=== PATIENT | female | born 2000 | race Hispanic/Latino ===

== ENCOUNTER 2021-02-21 16:04 | Emergency (ER) | payer MEDICAID ==
[~2021-02-21] VITALS: Ht 170.2 cm; Wt 99.8 kg
[2021-02-21 16:05] VITALS: BP 140/86
[2021-02-21] MEDS ORDERED: PREDNISONE 20 MG TABLET PO ONE (16:30)
[2021-02-21] MEDS ORDERED: DIPHENHYDRAMINE HCL 25 MG CAPSULE PO ONE (16:30)
[2021-02-21] MEDS ORDERED: FAMOTIDINE 20MG TAB PO ONE (16:30)
[2021-02-21] MEDS ORDERED: CETI10CA5 PO (16:35)
[2021-02-21] MEDS ORDERED: PRED20TA3 PO (16:35)
[2021-02-21] MEDS ORDERED: PREDNISONE 20 MG TABLET ONE (16:47)
[2021-02-21] MEDS ORDERED: FAMOTIDINE 20MG TAB ONE (16:47)
[2021-02-21] MEDS ORDERED: DIPHENHYDRAMINE HCL 25 MG CAPSULE ONE (16:48)
== END 2021-02-21 19:08 | disposition home or self-care (01) ==
LOC: EDH 16:04
DX: T78.49XA Other allergy, initial encounter (principal); Z79.52 Long term (current) use of systemic steroids; X58.XXXA Exposure to other specified factors, initial encounter
CPT/HCPCS: 99284; Q0163

== ENCOUNTER 2021-03-28 12:22 | Emergency (ER) | payer MEDICAID ==
[~2021-03-28] VITALS: Ht 170.2 cm; Wt 99.8 kg
[~2021-03-28 12:22] MED LIST: CETI10CA5 PO; PRED20TA3 PO
[2021-03-28 12:23] VITALS: BP 133/74
[2021-03-28] MEDS ORDERED: CYCL10 PO (15:32)
[2021-03-28] MEDS ORDERED: IBUP-2070 PO (15:32)
[2021-03-28] MEDS ORDERED: KETOROLAC 30MG VIAL (30MG/ML) IM SCH (16:00)
== END 2021-03-28 16:19 | disposition home or self-care (01) ==
LOC: EDH 12:22
DX: S16.1XXA Strain of muscle, fascia and tendon at neck level, initial encounter (principal); R51.9 Headache, unspecified; Z79.52 Long term (current) use of systemic steroids; Z79.1 Long term (current) use of non-steroidal anti-inflammatories (NSAID); V49.49XA Driver injured in collision with other motor vehicles in traffic accident, initial encounter; Y93.89 Activity, other specified; Y92.89 Other specified places as the place of occurrence of the external cause; Y99.8 Other external cause status
CPT/HCPCS: 36415; 70450; 72125; 84702

== ENCOUNTER 2021-08-20 20:24 | Emergency (ER) | payer MEDICAID ==
[~2021-08-20] VITALS: Ht 170.2 cm; Wt 104.3 kg
[~2021-08-20 20:24] MED LIST changes: +CYCL10TA16 PO; +IBUP-2070 PO
[2021-08-20 21:18] LABS: BASOPHILS % (AUTO) 0.4 % (0.0-5.0); HEMATOCRIT 46.4 % (36-48); LYMPHOCYTES % (AUTO) 27.1 % (21.0-51.0); MEAN CORPUSCULAR HEMOGLOBIN 27.4 pg (27.0-33.0); MEAN CORPUSCULAR HGB CONC 32.3 g/dL (32.0-36.0); MEAN CORPUSCULAR VOLUME 84.8 fL (79-99); MONOCYTES % (AUTO) 5.6 % (3.0-13.0); NEUTROPHILS % (AUTO) 65.5 % (40.0-77.0); PLATELET COUNT (AUTO) 386 K/uL (130-400); RED BLOOD CELL COUNT(AUTO) 5.47 MIL/uL (4.00-5.50); RED CELL DISTRIBUTION WIDTH 12.8 % (11.0-15.5); WHITE BLOOD COUNT (AUTO) 11.3 K/uL (4.8-10.8)
[2021-08-20 21:42] LABS: CREATININE 0.6 mg/dL (0.5-1.5); POTASSIUM 3.3 mmol/L (3.5-5.1)
[2021-08-20 21:52] LABS: ALBUMIN 3.9 g/dL (3.5-5.0); BILIRUBIN,TOTAL 0.7 mg/dL (0.2-1.0); TOTAL PROTEIN, SERUM 8.1 g/dL (6.0-8.3)
[2021-08-20 23:50] VITALS: BP 124/74
== END 2021-08-20 23:54 | disposition home or self-care (01) ==
LOC: EDH 20:27
DX: N92.0 Excessive and frequent menstruation with regular cycle (principal); Z79.899 Other long term (current) drug therapy; Z72.0 Tobacco use
CPT/HCPCS: 36415; 76856; 80053; 84702; 85025; 86900; 86901; 87486; 87797

== ENCOUNTER 2024-05-29 10:12 | Emergency (ER) | payer SELFPAY ==
[~2024-05-29] VITALS: Ht 170.2 cm; Wt 94.8 kg
--- NOTE | 2024-05-29 10:40 | ERN ---
General Chief Complaint: Cough Stated Complaint: COUGH Time Seen by MD: 10:13 Time Seen by Midlevel: 10:13 Source: patient History of Present Illness Initial Comments Patient is a 24-year-old female with no significant past medical history being brought in by mom for evaluation of flu-like symptoms. Symptoms consist of a productive cough, congestion, and intermittent low-grade fevers for the last four days. Patient was seen in our emergency department four days ago for an allergic reaction was discharged home on Benadryl. Shortly after patient developed the symptoms. Mom and patient's older brother is sick with similar symptoms. Allergies: Coded Allergies: No Known Drug Allergies (Unverified Allergy, Unknown, 02/21/21) Home Meds Active Scripts Ibuprofen (Ibuprofen) 600 Mg Tablet, 600 MG PO TID PRN for PAIN for 5 Days, #5 15 Prov:YONNY ISAAC NP 03/28/21 Cyclobenzaprine HCl (Flexeril) 10 Mg Tab, 5 MG PO TID for neck pain for 5 Days, #20 TAB Prov:YONNY ISAAC NP 03/28/21 Cetirizine HCl (Zyrtec) 10 Mg Capsule, 10 MG PO DAILY PRN for allergic reaction for 5 Days, #5 CAP 0 Refills Prov:CROW JUSTIN MD 02/21/21 Prednisone (Prednisone) 20 Mg Tablet, 20 MG PO BID for 3 Days, #6 TAB 0 Refills Prov:CROW JUSTIN MD 02/21/21 Past Medical History Past Medical History: No Pertinent History Past Surgical History: None Female( History) LMP: May 24, 2024 ROS Dictation CONSTITUTIONAL: Negative except for HPI HEAD/FACE: Negative except for HPI EENT: Negative except for HPI RESPIRATORY: Negative except for HPI GASTROINTESTINAL/ABDOMINAL: Negative except for HPI GENITOURINARY: Negative except for HPI MUSCULOSKELETAL: Negative except for HPI INTEGUMENTARY: Negative except for HPI NEUROLOGICAL/PSYCH: Negative except for HPI HEMATOLOGIC/LYMPHATIC: Negative except for HPI All Systems Negative, Except as noted above. 13 point review of systems assessed and all negative except for above. Physical Exam Physical Exam Dictation Vital Signs reviewed General Appearance: Alert, oriented x 3, no acute distress, well developed, nourished. Head and Face: non-traumatic. Eyes: PERRL, pink conjunctivas, eyelid no trauma, anterior chamber with arcus senilis. Ears: Pinnas intact and no signs of trauma or erythema ear canals clear and no discharge TM no erythema Nose: No discharge, no bleeding. Oropharynx: Erythema to the posterior oropharynx, bilateral tonsillar exudates, pharynx clear,no erythema, tonsils no exudates, no abscesses noted, mucous membrane moist Neck: Supple, non-tender, no thyromegaly, no masses, no JVD, no bruits Breast:Deferred Chest:No tenderness, no crepitus, no paradoxical movement, no retractions Lungs:Clear, well-ventilated, symmetric, no rales, no wheezing, no rhonchi, no stridor, good breath sounds bilaterally Heart: Regular rate, regular rhythm, no murmur, no gallops Vascular: no peripheral edema, Abdomen: Soft, positive bowel sounds, nondistended, no guarding, nontender, no rebound, no masses no hepatomegaly, no splenomegaly, no Mcdermott's sign, no hernias. Rectal: Deferred Genital: Deferred Neurological: Normal speech, motor function intact, sensory function intact Musculoskeletal: Neck nontender, full range of motion, back nontender, full range of motion, Extremities: nontender, full range of motion Skin: Color pink, dry, no turgor, no rash, no lacerations, no abrasions, no contusions. Lymphatic: Deferred Results Laboratory and Microbiology Lab and Micro Result Laboratory Tests Test 05/29/24 11:22 Influenza Type A Antigen NEGATIVE FOR TYPE A Influenza Type B Antigen NEGATIVE FOR TYPE B SARS-CoV-2, RNA, NAAT NEGATIVE SARS CoV-2 Group A Streptococcus Rapid positive (NEGATIVE) *A Labs Reviewed?: Yes MDM MDM: Patient is a 24-year-old female with no significant past medical history being brought in by mom for evaluation of flu-like symptoms. Symptoms consist of a productive cough, congestion, and intermittent low-grade fevers for the last four days. Patient was seen in our emergency department four days ago for an allergic reaction was discharged home on Benadryl. Shortly after patient developed the symptoms. Mom and patient's older brother is sick with similar symptoms. On physical examination patient has erythema to the posterior oropharynx with bilateral tonsillar exudates. Uvula is midline. No signs of peritonsillar abscess. Patient has an O2 saturation of 100% on room air. She was in no acute respiratory distress. Respiratory swabs are remarkable for strep. Patient was given 1 g of Rocephin IM along with a single dose of dexamethasone 10 mg in the ER. She will be discharged home with antibiotics for outpatient management. Differential diagnosis: Viral syndrome, strep pharyngitis, upper respiratory infection There are no social concerns with this patient. Prescription drug management Prescriptions will include: Augmentin and Medrol pack Medical management and examination interpretation discussions were had by me w ith other qualified healthcare professionals as indicated for the patient's care. ED Course Orders Procedure Category Date Status Time Covid Rna Naat LAB 05/29/24 Complete 10:33 Influenza Type A & B, LAB 05/29/24 Complete Rapid 10:33 Rapid (Group A Strep) LAB 05/29/24 Complete 10:33 Monotest LAB 05/29/24 In Process 10:33 Ceftriaxone 1g Vial PHA 05/29/24 Transmitted (Rocephine 1g Inj) 12:30 Dexamethasone 4mg/Ml PHA 05/29/24 Transmitted 1ml Vial (Dexametha 12:30 Current Medications Medications (Trade) Dose Ordered Sig/Elan Route PRN Reason Start Time Stop Time Status Last Admin Dose Admin Ceftriaxone Sodium (ROCEphine 1G INJ) 1 gm ONCE ONCE IM 05/29/24 12:30 05/29/24 12:31 Dexamethasone Sodium Phosphate (dexaMETHasone 4MG/ML 1ML VIAL) 10 mg ONCE ONCE IM 05/29/24 12:30 05/29/24 12:31 Vital Signs Date Time Temp Pulse Resp B/P (MAP) Pulse Ox O2 Delivery O2 Flow Rate FiO2 05/29/24 11:00 98.8 84 16 161/89 97 Room Air* 0 21 05/29/24 10:18 98.2 82 16 158/93 96 Room Air 0 DX & DISP Disposition: Discharge Departure Impression: Primary Impression: Strep pharyngitis Condition: Stable Scripts Methylprednisolone (Medrol) 4 Mg Tab.ds.pk 1 TAB PO AD for 6 Days, #21 TAB 0 Refills 6 on day 1 then reduce by one tablet daily until gone Prov: ROXIE RODRIGUEZ 05/29/24 Amoxicillin/Potassium Clav (Amox Tr-K Clv 875-125 mg Tab) 875 Mg-125 Mg Tablet 1 EACH PO BID for 7 Days, #14 TAB 0 Refills Prov: ROXIE RODRIGUEZ 05/29/24 Additional Instructions: You have tested positive for strep. You were given antibiotics and steroids in the emergency department. I have given you a prescription for Augmentin for outpatient management. Follow up with your primary care doctor in 2-3 days for repeat evaluation. Return to the ER for any new or worsening symptoms. Referrals: NONE (PCP) Time of Disposition: 12:31 I have reviewed the case, and I agree with, Diagnosis and Plan I performed the substantive portion of the visit. I have reviewed and personal ly made and approve the management plan that is documented in the note by myself or the DANILO. I acknowledge for responsibility for the patient's management plan. ROXIE RODRIGUEZ May 29, 2024 10:40
[2024-05-29 11:57] LABS: SARS-CoV-2, RNA, NAAT NEGATIVE SARS CoV-2 (NEGATIVE)
[2024-05-29 12:07] LABS: RAPID GROUP A STREP positive (NEGATIVE)
[2024-05-29 12:08] LABS: INFLUENZA TYPE A NEGATIVE FOR TYPE A (NEGATIVE); INFLUENZA TYPE B NEGATIVE FOR TYPE B (NEGATIVE)
[2024-05-29] MEDS ORDERED: METH4TAB3 PO (12:33)
[2024-05-29] MEDS ORDERED: AMOX1TAB16 PO (12:33)
[2024-05-29] MEDS: cefTRIAXone 1G VIAL IM ONE (12:36)
[2024-05-29] MEDS: dexaMETHasone SOD PHOSPHATE 4 MG/ML 1ML VIAL IM ONE (12:36)
[2024-05-29 13:03] VITALS: BP 142/86; PULSE 82; RESP 16; TEMP 98.3; O2SAT 97
== END 2024-05-29 13:13 | disposition home or self-care (01) ==
LOC: EDH 10:12
DX: J02.0 Streptococcal pharyngitis (principal); Z79.52 Long term (current) use of systemic steroids; Z20.822 Contact with and (suspected) exposure to COVID-19
CPT/HCPCS: 99284; 87635; 87880; 86308; 87804 ×2; 36415; 96372 ×2; J1100; J0696

== ENCOUNTER 2024-10-26 00:06 | Emergency (ER) | payer MEDICAID, SELFPAY ==
[~2024-10-26] VITALS: Ht 170.2 cm; Wt 92.5 kg
[~2024-10-26 00:06] MED LIST changes: +AMOX1TAB16 PO; +METH4TAB3 PO
[2024-10-26 00:37] LABS: APPEARANCE,URINE CLEAR (CLEAR); BILIRUBIN,URINE NEGATIVE (NEGATIVE); COLOR,URINE LIGHT-YELLOW (YELLOW); GLUCOSE, URINE (UA) NEGATIVE (NEGATIVE); KETONES,URINE NEGATIVE (NEGATIVE); LEUKOCYTE ESTERASE ,URINE NEGATIVE Leu/uL (NEGATIVE); NITRATE,URINE NEGATIVE (NEGATIVE); OCCULT BLOOD,URINE NEGATIVE (NEGATIVE); PROTEIN,URINE NEGATIVE (NEGATIVE); UROBILINOGEN,URINE 0.2 mg/dL (0.2-1.0)
[2024-10-26 00:50] LABS: ADD UA MICROSCOPIC NO
[2024-10-26 01:02] LABS: BASOPHILS # (AUTO) 0.06 K/uL (0.00-0.20); BASOPHILS % (AUTO) 0.5 % (0.0-5.0); EOSINOPHILS # (AUTO) 0.11 K/uL (0.00-0.70); EOSINOPHILS % (AUTO) 0.9 % (0.0-8.0); HEMATOCRIT 43.6 % (36-48); IMMATURE GRANULOCYTE ABSOLUTE 0.03 K/uL (0-1); LYMPHOCYTES # (AUTO) 4.1 K/uL (1.0-4.8); LYMPHOCYTES % (AUTO) 33.4 % (21.0-51.0); MEAN CORPUSCULAR HEMOGLOBIN 28.6 pg (27.0-33.0); MEAN CORPUSCULAR HGB CONC 33.7 g/dL (32.0-36.0); MEAN CORPUSCULAR VOLUME 84.8 fL (79-99); MONOCYTES # (AUTO) 0.7 K/uL (0.1-1.0); MONOCYTES % (AUTO) 5.5 % (3.0-13.0); NEUTROPHILS # (AUTO) 7.2 K/uL (1.8-7.7); NEUTROPHILS % (AUTO) 59.5 % (40.0-77.0); PLATELET COUNT (AUTO) 387 K/uL (130-400); RED BLOOD CELL COUNT(AUTO) 5.14 MIL/uL (4.00-5.50); RED CELL DISTRIBUTION WIDTH 12.7 % (11.0-15.5); WHITE BLOOD COUNT (AUTO) 12.2 K/uL (4.8-10.8)
[2024-10-26 01:08] LABS: CREATININE 0.6 mg/dL (0.5-1.0); POTASSIUM 3.6 mmol/L (3.5-5.1)
[2024-10-26 01:26] LABS: ALBUMIN 3.8 g/dL (3.5-5.0); BILIRUBIN,DIRECT 0.1 mg/dL (0.0-0.3); BILIRUBIN,TOTAL 0.5 mg/dL (0.2-1.0); TOTAL PROTEIN, SERUM 7.5 g/dL (6.0-8.3)
--- NOTE | 2024-10-26 01:48 | ERN ---
ED Note History of Present Illness Stated Complaint: C/O ABD PAIN WITH N X V X DIARRHEA, FEVER Chief Complaint: Abdominal Pain Time Seen by MD: 00:08 Time Seen by Midlevel: 00:11 Dictation: 24-year-old female with no past medical history coming in complaining of a vomiting and diarrhea since Wednesday. Patient states today she has three episodes of vomiting ,nonbloody in lost counter for diarrhea movements, also nonbloody. Patient denies having any fever, chest pain she was discomfort, lightheadedness. Denies any other complaints. Patient states her LMP was last week Allergies: Coded Allergies: No Known Drug Allergies (Unverified Allergy, Unknown, 02/21/21) Home Meds Active Scripts Methylprednisolone (Medrol) 4 Mg Tab.ds.pk, 1 TAB PO AD for 6 Days, #21 TAB 0 Refills 6 on day 1 then reduce by one tablet daily until gone Prov:ROXIE RODRIGUEZ 05/29/24 Amoxicillin/Potassium Clav (Amox Tr-K Clv 875-125 mg Tab) 875 Mg-125 Mg Tablet, 1 EACH PO BID for 7 Days, #14 TAB 0 Refills Prov:ROXIE RODRIGUEZ 05/29/24 Ibuprofen (Ibuprofen) 600 Mg Tablet, 600 MG PO TID PRN for PAIN for 5 Days, #5 15 Prov:YONNY ISAAC NP 03/28/21 Cyclobenzaprine HCl (Flexeril) 10 Mg Tab, 5 MG PO TID for neck pain for 5 Days, #20 TAB Prov:YONNY ISAAC NP 03/28/21 Cetirizine HCl (Zyrtec) 10 Mg Capsule, 10 MG PO DAILY PRN for allergic reaction for 5 Days, #5 CAP 0 Refills Prov:CROW JUSTIN MD 02/21/21 Prednisone (Prednisone) 20 Mg Tablet, 20 MG PO BID for 3 Days, #6 TAB 0 Refills Prov:CROW JUSTIN MD 02/21/21 Past Medical History Past Medical History: No Pertinent History Surgical History: Other LMP: Oct 19, 2024 Review of System Dictation Constitutional: Negative for fever,chills, and weight loss Eyes: Negative for injury, pain,redness, and discharge ENT: Negative for injury,pain or swelling Cardiovascular: Negative for chest pain, palpitations, and edema Respiratory: Negative for shortness of breath, cough, and wheezing, Abdomen/GI:complaining of nausea and vomiting and diarrhea, Back: Negative for injury and pain : Negative for injury, bleeding and discharge MS/Extremity: Negative for injury and deformity Skin: Negative for rash, and discoloration Neuro: Negative for headache, weakness, numbness, tingling, and seizure Psych: Negative for suicide ideation, homicidal ideation, and hallucinations Review of Systems: was completed Initial Vital Sign VS Vital Signs Date Time Temp Pulse Resp B/P (MAP) Pulse Ox O2 Delivery O2 Flow Rate FiO2 10/26/24 00:08 98.8 70 20 129/82 98 Room Air Physical Exam Dictation General: awake, alert, NAD Head/Face: Normocephalic, atraumatic Eyes: PERRL, EOMI, vision at baseline ENT: oral cavity clear, TMs clear, no signs of infection Neck: Trachea midline, supple, no nuchal rigidity Cardiovascular: RRR, normal S1/S2, No MRGs, no JVD Respiratory: CTAB, no respiratory distress, No rales or wheezes Abdomen: Soft, non-tender, non-distended, normal bowel sounds, no guarding or rebound. Skin: Warm, dry, normal turgor, no rash MS/Extremity: Pulses equal, no cyanosis, neurovascular intact, FROM Neuro: COAx4, GCS 15, strength 5/5, CN 2-12 intact, normal cerebellar exam, normal gait, Psych: Normal behavior, mood, and affect normal Results (Laboratory/Radiology) Laboratory/Radiology Laboratory Tests Test 10/26/24 00:15 10/26/24 00:53 Urine Color LIGHT-YELLOW (YELLOW) Urine Appearance CLEAR (CLEAR) Urine pH 6.0 (5.0-8.0) Urine Specific Spencer 1.021 (1.001-1.031) Urine Protein NEGATIVE mg/dL (NEGATIVE) Urine Glucose (UA) NEGATIVE mg/dL (NEGATIVE) Urine Ketones NEGATIVE mg/dL (NEGATIVE) Urine Occult Blood NEGATIVE (NEGATIVE) Urine Nitrate NEGATIVE (NEGATIVE) Urine Bilirubin NEGATIVE mg/dL (NEGATIVE) Urine Urobilinogen 0.2 mg/dL (0.2-1.0) Urine Leukocyte Esterase NEGATIVE Rafael/uL White Blood Count 12.2 K/uL (4.8-10.8) H Red Blood Count 5.14 MIL/uL (4.00-5.50) Hemoglobin 14.7 g/dL (12.0-16.0) Hematocrit 43.6 % (36-48) Mean Corpuscular Volume 84.8 fL (79-99) Mean Corpuscular Hemoglobin 28.6 pg (27.0-33.0) Mean Corpuscular Hemoglobin Concent 33.7 g/dL (32.0-36.0) Red Cell Distribution Width 12.7 % (11.0-15.5) Platelet Count 387 K/uL (130-400) Mean Platelet Volume 10.0 fL (7.5-10.5) Immature Granulocyte % (Auto) 0.2 % (0-1) Neutrophils (%) (Auto) 59.5 % (40.0-77.0) Lymphocytes (%) (Auto) 33.4 % (21.0-51.0) Monocytes (%) (Auto) 5.5 % (3.0-13.0) Eosinophils (%) (Auto) 0.9 % (0.0-8.0) Basophils (%) (Auto) 0.5 % (0.0-5.0) Neutrophils # (Auto) 7.2 K/uL (1.8-7.7) Lymphocytes # (Auto) 4.1 K/uL (1.0-4.8) Monocytes # (Auto) 0.7 K/uL (0.1-1.0) Eosinophils # (Auto) 0.11 K/uL (0.00-0.70) Basophils # (Auto) 0.06 K/uL (0.00-0.20) Absolute Immature Granulocyte (auto 0.03 K/uL (0-1) Nucleated Red Blood Cells 0.0 % (0.0-0.19) Sodium Level 138 mmol/L (136-145) Potassium Level 3.6 mmol/L (3.5-5.1) Chloride Level 103 mmol/L (101-111) Carbon Dioxide Level 30 mmol/L (21-32) Blood Urea Nitrogen 13 mg/dL (7-18) Creatinine 0.6 mg/dL (0.5-1.0) Glomerular Filtration Rate Calc 128 mL/min (>90) Random Glucose 91 mg/dL (70-105) Total Calcium 8.9 mg/dL (8.5-10.1) Total Bilirubin 0.5 mg/dL (0.2-1.0) Direct Bilirubin 0.1 mg/dL (0.0-0.3) Aspartate Amino Transf (AST/SGOT) 19 U/L (10-37) Alanine Aminotransferase (ALT/SGPT) 35 U/L (12-78) Alkaline Phosphatase 79 U/L (50-136) Total Protein 7.5 g/dL (6.0-8.3) Albumin 3.8 g/dL (3.5-5.0) Lipase 33 U/L (16-77) Human Chorionic Gonadotropin, Quant 0 mIU/mL (0-5) Labs Reviewed?: Yes ED Course ED Course Orders Procedure Category Date Status Time Cbc With Differential LAB 10/26/24 Complete 00:08 Basic Metabolic Panel LAB 10/26/24 Complete 00:08 Lipase LAB 10/26/24 Complete 00:08 Hepatic Function Panel LAB 10/26/24 Complete 00:08 Hcg,Quantitative LAB 10/26/24 Complete 00:08 Urinalysis Profile LAB 10/26/24 Complete 00:08 0.9%Nacl 1000ml (Ns PHA 10/26/24 Complete 1000ml) 00:12 Stool Panel Gi By Pcr LAB 10/26/24 Logged 00:12 Current Medications Medications (Trade) Dose Ordered Sig/Elan Route PRN Reason Start Time Stop Time Status Last Admin Dose Admin Sodium Chloride 1,000 ml @ 1,000 mls/hr Q1H STAT IV 10/26/24 00:12 10/26/24 01:11 DC Vital Signs Date Time Temp Pulse Resp B/P (MAP) Pulse Ox O2 Delivery O2 Flow Rate FiO2 10/26/24 00:08 98.8 70 20 129/82 98 Room Air Medical Decision Making MDM MDM: 24-year-old female with no past medical history coming in complaining of a vomiting and diarrhea since Wednesday. Patient states today she has three episodes of vomiting ,nonbloody in lost counter for diarrhea movements, also nonbloody. Patient denies having any fever, chest pain she was discomfort, lightheadedness. Denies any other complaints. Patient states her LMP was last week. Blood work unremarkable. Ordered a GI PCR however patient was unable to provide sample she has not had a bowel movement since she arrived. Patient also drank a sprite while she was waiting for the lab results. She was able to tolerate it with a out any vomiting or diarrhea. Discussed with the patient to follow up with PCP in 1-2 days or turned has a hospitalist needed. Differential diagnosis: Gastroenteritis, viral syndrome, Rationale: Tests considered and ordered secondary to shared decision making include: Previous outside records reviewed: Old ER visits. Risk of complication and/or morbidity or mortality of patient management: None Medications-Per medication reconciliation Need for hospitalization: Patient does not meet criteria for hospitalization. Need for emergency major/minor surgery: No There are no social concerns with this patient. Prescription drug management Prescriptions will include symptomatic care Patient's prior external medical records from other ER visits were reviewed by me as indicated. Prior testing and results from previous visits were reviewed. Prior tests were taken into account with medical decision making and resource utilization, independent historian/historians were used to obtain complete medical history. I independently interpreted the test that were performed, results were reviewed by me and considered findings on radiology if ordered. Medical management and examination interpretation discussions were had by me with other qualified healthcare professionals as indicated for the patient's care. DX & DISP Disposition: Discharge Departure Impression: Primary Impression: Gastroenteritis Condition: Stable Additional Instructions: Please stay hydrated. Follow up with PCP in 1-2 days. Return to the hospital for worsening symptoms. Referrals: SELF,REFERRAL (PCP) Time of Disposition: 01:46 I have reviewed the case, and I agree with, Diagnosis and Plan I PERFORMED A SUBSTANTIVE PORTION OF THE VISIT. I HAVE REVIEWED AND PERSONALLY MADE AND APPROVE THE MANAGEMENT PLAN THAT IS DOCUMENTED IN THE NOTE BY MYSELF OR THE AP P. I ACKNOWLEDGE FULL RESPONSIBILITY FOR THE PATIENT'S MANAGEMENT PLAN. LICO VANN NP Oct 26, 2024 01:48
[2024-10-26 01:55] VITALS: BP 118/78; PULSE 66; RESP 18; TEMP 98.4; O2SAT 97
[2024-10-26] MEDS: 0.9%NACL 1000ML 1,000 ML IV STA (02:03)
== END 2024-10-26 02:07 | disposition home or self-care (01) ==
LOC: EDH 00:06
DX: K52.9 Noninfective gastroenteritis and colitis, unspecified (principal); R10.2 Pelvic and perineal pain; Z79.52 Long term (current) use of systemic steroids
CPT/HCPCS: 36415; 80048; 80076; 81003; 83690; 84702; 85025; 99283

== ENCOUNTER 2024-11-27 15:00 | Emergency (ER) | payer MEDICAID ==
[~2024-11-27] VITALS: Ht 170.2 cm; Wt 94.0 kg
[2024-11-27 16:04] LABS: INFLUENZA TYPE A Negative For Type A (NEGATIVE); INFLUENZA TYPE B Negative For Type B (NEGATIVE)
[2024-11-27] MEDS ORDERED: CLIN-141 PO (16:23)
--- NOTE | 2024-11-27 16:23 | ERN ---
ED Note History of Present Illness Stated Complaint: COUGH, CONGESTION, COVID + Chief Complaint: Cough Time Seen by MD: 15:01 Dictation: 24-year-old female presents to the ED for evaluation of cough onset four days ago. Mother reports fever, vomiting, and finger infection, but denies any abdominal pain, diarrhea or any other associated symptoms at this time. Patient states she tested positive for COVID at home and states her daughter is also COVID positive. Allergies: Coded Allergies: No Known Drug Allergies (Unverified Allergy, Unknown, 02/21/21) Home Meds Active Scripts Clindamycin HCl (Clindamycin HCl) 300 Mg Capsule, 1 CAP PO TID for 10 Days, #30 CAP 0 Refills Prov:SINDHU NATION MD 11/27/24 Methylprednisolone (Medrol) 4 Mg Tab.ds.pk, 1 TAB PO AD for 6 Days, #21 TAB 0 Refills 6 on day 1 then reduce by one tablet daily until gone Prov:ROXIE RODRIGUEZ 05/29/24 Amoxicillin/Potassium Clav (Amox Tr-K Clv 875-125 mg Tab) 875 Mg-125 Mg Tablet, 1 EACH PO BID for 7 Days, #14 TAB 0 Refills Prov:ROXIE RODRIGUEZ 05/29/24 Ibuprofen (Ibuprofen) 600 Mg Tablet, 600 MG PO TID PRN for PAIN for 5 Days, #5 15 Prov:YONNY ISAAC NP 03/28/21 Cyclobenzaprine HCl (Flexeril) 10 Mg Tab, 5 MG PO TID for neck pain for 5 Days, #20 TAB Prov:YONNY ISAAC NP 03/28/21 Cetirizine HCl (Zyrtec) 10 Mg Capsule, 10 MG PO DAILY PRN for allergic reaction for 5 Days, #5 CAP 0 Refills Prov:CROW JUSTIN MD 02/21/21 Prednisone (Prednisone) 20 Mg Tablet, 20 MG PO BID for 3 Days, #6 TAB 0 Refills Prov:CROW JUSTIN MD 02/21/21 Past Medical History Past Medical History: No Pertinent History Surgical History: Other LMP: November 06, 2024 Review of System Dictation Constitutional: Positive for fever negative for chills, and weight loss Eyes: Negative for injury, pain,redness, and discharge ENT: Negative for injury,pain or swelling Cardiovascular: Negative for chest pain, palpitations, and edema Respiratory: Positive for cough, Negative for shortness of breath, and wheezing, Abdomen/GI: Positive for vomiting,Negative for abdominal pain, nausea, diarrhea, and constipation Back: Negative for injury and pain : Negative for injury, bleeding and discharge MS/Extremity: Positive for finger pain Negative for injury and deformity Skin: Negative for rash, and discoloration Neuro: Negative for headache, weakness, numbness, tingling, and seizure Psych: Negative for suicide ideation, homicidal ideation, and hallucinations Initial Vital Sign VS Vital Signs Date Time Temp Pulse Resp B/P (MAP) Pulse Ox O2 Delivery O2 Flow Rate FiO2 11/27/24 15:01 98.2 94 20 186/97 98 Room Air 0 Physical Exam Dictation General: awake, alert, NAD Head/Face: Normocephalic, atraumatic Eyes: PERRL, EOMI, vision at baseline ENT: oral cavity clear, TMs clear, nasal congestion Neck: Trachea midline, supple, no nuchal rigidity Cardiovascular: RRR, normal S1/S2, No MRGs, no JVD Respiratory: CTAB, no respiratory distress, No rales or wheezes Abdomen: Soft, non-tender, non-distended, normal bowel sounds, no guarding or rebound. Skin: Warm, dry, normal turgor, no rash MS/Extremity: Pulses equal, no cyanosis, neurovascular intact, FROM, left 3rd distal digit erythema consistent with paronychia Neuro: COAx4, GCS 15, strength 5/5, CN 2-12 intact, normal cerebellar exam, normal gait, Psych: Normal behavior, mood, and affect normal Results (Laboratory/Radiology) Laboratory/Radiology Laboratory Tests Test 11/27/24 15:23 Influenza Type A Antigen Negative For Type A Influenza Type B Antigen Negative For Type B SARS-CoV-2 Antigen (Rapid) POSITIVE FOR SARS AG Group A Streptococcus Rapid positive (NEGATIVE) *A Labs Reviewed?: Yes ED Course ED Course Orders Procedure Category Date Status Time Covid19 (Sars Antigen LAB 11/27/24 Complete Rapid) 15:07 Influenza Type A & B, LAB 11/27/24 Complete Rapid 15:07 Rapid (Group A Strep) LAB 11/27/24 Complete 15:07 Ceftriaxone 1g Vial PHA 11/27/24 Complete (Rocephine 1g Inj) 16:30 Current Medications Medications (Trade) Dose Ordered Sig/Elan Route PRN Reason Start Time Stop Time Status Last Admin Dose Admin Ceftriaxone Sodium (ROCEphine 1G INJ) 1 gm ONCE ONCE IM 11/27/24 16:30 11/27/24 16:35 DC Vital Signs Date Time Temp Pulse Resp B/P (MAP) Pulse Ox O2 Delivery O2 Flow Rate FiO2 11/27/24 15:01 98.2 94 20 186/97 98 Room Air 0 Medical Decision Making MDM MDM: Differential diagnosis: COVID, viral syndrome, URI, paronychia Risk of complication and/or morbidity or mortality of patient management: None Medications-Per medication reconciliation Need for hospitalization: Patient does not meet criteria for hospitalization. Need for emergency major/minor surgery: No There are no social concerns with this patient. Prescription drug management Prescriptions will include symptomatic care DX & DISP Disposition: Discharge Departure Impression: Primary Impression: COVID-19 Additional Impressions: Acute URI, Strep pharyngitis Condition: Stable Scripts Clindamycin HCl (Clindamycin HCl) 300 Mg Capsule 1 CAP PO TID for 10 Days, #30 CAP 0 Refills Prov: SINDHU NATION MD 11/27/24 Referrals: SELF,REFERRAL (PCP) SINDHU NATION MD November 27, 2024 16:23
[2024-11-27 16:24] LABS: COVID19 (SARS ANTIGEN RAPID) POSITIVE FOR SARS AG (NEGATIVE)
[2024-11-27 16:25] LABS: RAPID GROUP A STREP positive (NEGATIVE)
[2024-11-27] MEDS: LIDOCAINE HCL 1% 20 ML VIAL ONE (17:00)
[2024-11-27] MEDS: cefTRIAXone 1G VIAL IM ONE (17:00)
[2024-11-27 17:18] VITALS: BP 156/88; PULSE 88; RESP 18; TEMP 98.3; O2SAT 98
== END 2024-11-27 17:22 | disposition home or self-care (01) ==
LOC: EDH 15:00
DX: U07.1 COVID-19 (principal); J02.0 Streptococcal pharyngitis; Z79.52 Long term (current) use of systemic steroids
CPT/HCPCS: 99283; 87426; 87880; 87804 ×2; 96372; J0696

== ENCOUNTER 2025-02-24 10:32 | Emergency (ER) | payer MEDICAID ==
[~2025-02-24] VITALS: Ht 170.2 cm; Wt 95.3 kg
[~2025-02-24 10:32] MED LIST changes: +CLIN-141 PO; +IBUP-1492 PO; -IBUP-2070 PO
[2025-02-24 10:58] VITALS: BP 138/82; PULSE 86; RESP 22; TEMP 98.3; O2SAT 98
[2025-02-24 11:11] LABS: COVID19 (SARS ANTIGEN RAPID) PRESUMPTIVE NEGATIVE (NEGATIVE)
[2025-02-24 11:12] LABS: INFLUENZA TYPE A Negative For Type A (NEGATIVE); INFLUENZA TYPE B Negative For Type B (NEGATIVE)
--- NOTE | 2025-02-24 11:17 | ERN ---
ED Note History of Present Illness Stated Complaint: SORE THROAT Chief Complaint: Sore Throat Time Seen by MD: 11:08 Time Seen by Midlevel: 11:08 Dictation: The patient is a 24-year-old female with no significant past medical history who presents to the emergency department with complaints of sore throat, right ear pain, nasal congestion onset one week ago. Allergies: Coded Allergies: No Known Drug Allergies (Unverified Allergy, Unknown, 02/21/21) Home Meds Active Scripts Clindamycin HCl (Clindamycin HCl) 300 Mg Capsule, 1 CAP PO TID for 10 Days, #30 CAP 0 Refills Prov:SINDHU NATION MD 11/27/24 Methylprednisolone (Medrol) 4 Mg Tab.ds.pk, 1 TAB PO AD for 6 Days, #21 TAB 0 R efills 6 on day 1 then reduce by one tablet daily until gone Prov:ROXIE RODRIGUEZ 05/29/24 Amoxicillin/Potassium Clav (Amox Tr-K Clv 875-125 mg Tab) 875 Mg-125 Mg Tablet, 1 EACH PO BID for 7 Days, #14 TAB 0 Refills Prov:ROXIE RODRIGUEZ 05/29/24 Ibuprofen (Ibuprofen) 600 Mg Tablet, 600 MG PO TID PRN for PAIN for 5 Days, #5 15 Prov:YONNY ISAAC NP 03/28/21 Cyclobenzaprine HCl (Flexeril) 10 Mg Tab, 5 MG PO TID for neck pain for 5 Days, #20 TAB Prov:YONNY ISAAC NP 03/28/21 Cetirizine HCl (Zyrtec) 10 Mg Capsule, 10 MG PO DAILY PRN for allergic reaction for 5 Days, #5 CAP 0 Refills Prov:CROW JUSTIN MD 02/21/21 Prednisone (Prednisone) 20 Mg Tablet, 20 MG PO BID for 3 Days, #6 TAB 0 Refills Prov:CROW JUSTIN MD 02/21/21 Past Medical History Past Medical History: No Pertinent History Surgical History: None RN Note Reviewed/Agreed w/PFSH: Yes Review of System Dictation Constitutional: Negative for fever,chills, and weight loss Eyes: Negative for injury, pain,redness, and discharge ENT: Negative for injury,pain or swelling positive for sore throat, right ear pain, nasal congestion Cardiovascular: Negative for chest pain, palpitations, and edema Respiratory: Negative for shortness of breath, cough, and wheezing, Abdomen/GI: Negative for abdominal pain, nausea, vomiting, diarrhea, and constipation Back: Negative for injury and pain : Negative for injury, bleeding and discharge MS/Extremity: Negative for injury and deformity Skin: Negative for rash, and discoloration Neuro: Negative for headache, weakness, numbness, tingling, and seizure Psych: Negative for suicide ideation, homicidal ideation, and hallucinations Initial Vital Sign VS Vital Signs Date Time Temp Pulse Resp B/P (MAP) Pulse Ox O2 Delivery O2 Flow Rate FiO2 02/24/25 10:33 98.8 91 18 110/56 97 Room Air 02/24/25 10:58 0 21 Physical Exam Dictation Vital Signs reviewed General Appearance: Alert, oriented x 3, no acute distress, well developed, nourished. Head and Face: non-traumatic. Eyes: PERRL, pink conjunctivas, eyelid no trauma, anterior chamber with arcus senilis. Ears: Pinnas intact and no signs of trauma or right erythema ear canal, clear and no discharge TM no erythema Nose: No discharge, no bleeding. Oropharynx: Mouth normal, tongue pink. pharynx clear,no erythema, tonsils no exudates, no abscesses noted, mucous membrane moist Neck: Supple, non-tender, no thyromegaly, no masses, no JVD, no bruits Breast:Deferred Chest:No tenderness, no crepitus, no paradoxical movement, no retractions Lungs:Clear, well-ventilated, symmetric, no rales, no wheezing, no rhonchi, no stridor, good breath sounds bilaterally Heart: Regular rate, regular rhythm, no murmur, no gallops Vascular: no peripheral edema, Abdomen: Soft, positive bowel sounds, nondistended, no guarding, nontender, no rebound, no masses no hepatomegaly, no splenomegaly, no Mcdermott's sign, no hernias. Rectal: Deferred Genital: Deferred Neurological: Normal speech, motor function intact, sensory function intact Musculoskeletal: Neck nontender, full range of motion, back nontender, full range of motion, Extremities: nontender, full range of motion Skin: Color pink, dry, no turgor, no rash, no lacerations, no abrasions, no contusions. Lymphatic: Deferred Results (Laboratory/Radiology) Laboratory/Radiology Laboratory Tests Test 02/24/25 10:42 Influenza Type A Antigen Negative For Type A Influenza Type B Antigen Negative For Type B SARS-CoV-2 Antigen (Rapid) PRESUMPTIVE NEGATIVE Group A Streptococcus Rapid negative (NEGATIVE) Labs Reviewed?: Yes ED Course ED Course Orders Procedure Category Date Status Time Covid19 (Sars Antigen LAB 02/24/25 Complete Rapid) 10:43 Influenza Type A & B, LAB 02/24/25 Complete Rapid 10:43 Rapid (Group A Strep) LAB 02/24/25 Complete 10:43 Acetaminophen 500mg PHA 02/24/25 Complete Tab (Tylenol 500mg T 11:30 Current Medications Medications (Trade) Dose Ordered Sig/Elan Route PRN Reason Start Time Stop Time Status Last Admin Dose Admin Acetaminophen (TYLenol 500MG TAB) 1,000 mg ONCE ONCE PO 02/24/25 11:30 02/24/25 11:31 DC Vital Signs Date Time Temp Pulse Resp B/P (MAP) Pulse Ox O2 Delivery O2 Flow Rate FiO2 02/24/25 10:58 98.2 86 22 138/82 98 Room Air* 0 21 02/24/25 10:33 98.8 91 18 110/56 97 Room Air Medical Decision Making MDM The patient is a 24-year-old female with no significant past medical history who presents to the emergency department with complaints of sore throat, right ear pain, nasal congestion onset one week ago. Serology was negative. Patient's symptoms are consistent with a an upper respiratory infection. On physical exam patient is in no acute distress, stable vital signs, clear lung sounds. Patient will be discharged to follow up with the PCP. Differential diagnosis: Otitis media, URI, strep throat Need for hospitalization: Patient does not meet criteria for hospitalization. There are no social concerns with this patient. DX & DISP Disposition: Discharge Departure Impression: Primary Impression: URI (upper respiratory infection) Condition: Stable Additional Instructions: Your symptoms are consistent with a an upper respiratory infection.Please follow up with your PCP in 1-2 days. If anything worsens please return to ER. FOLLOW-UP WITH PRIMARY CARE PROVIDER IN 1 TO 2 DAYS. TAKE MEDICATIONS DIRECTED HERE IN THE EMERGENCY ROOM. OKAY TO CONTINUE HOME MEDICATIONS UNLESS OTHERWISE DISCUSSED DURING YOUR VISIT IN THE EMERGENCY ROOM TODAY. RETURN TO YOUR NEAREST EMERGENCY ROOM IF SYMPTOMS WORSEN OR IF THERE IS NO IMPROVEMENT. CALL 911 IF YOU NEED IMMEDIATE ASSISTANCE. TAKE TYLENOL [id number] NEEDED AND IF NO CONTRAINDICATIONS ARE PRESENT. INCREASE ORAL HYDRATION. A WOUND CULTURE OR URINE CULTURE WAS ORDERED HERE IN THE EMERGENCY ROOM DEPARTMENT PLEASE FOLLOW-UP WITH PRIMARY CARE PROVIDER AND ADVISE THEM TO GET REPEAT PORTS FROM OUR FACILITY. IF YOU HAD ANY MAME WRAP/SPLINTS THAT WERE APPLIED HERE, PLEASE DO NOT REMOVE THEM UNTIL YOU SEE YOUR PRIMARY CARE OR SPECIALTY. Referrals: CARLEY MONIQUE (PCP) Time of Disposition: 11:36 I have reviewed the case, and I agree with, Diagnosis and Plan IMLVIA MACIASP Feb 24, 2025 11:17 VAMSI SUTHERLAND DO Feb 24, 2025 12:47
[2025-02-24 11:21] LABS: RAPID GROUP A STREP negative (NEGATIVE)
== END 2025-02-24 11:52 | disposition home or self-care (01) ==
LOC: EDH 10:32
DX: J06.9 Acute upper respiratory infection, unspecified (principal); Z20.822 Contact with and (suspected) exposure to COVID-19; Z79.52 Long term (current) use of systemic steroids
CPT/HCPCS: 87426; 87804; 87880; 99283

== ENCOUNTER 2025-06-10 20:02 | Emergency (ER) | payer MEDICAID ==
[~2025-06-10] VITALS: Ht 170.2 cm; Wt 91.2 kg
--- NOTE | 2025-06-10 20:38 | ERN ---
General Chief Complaint: Vaginal Problems/Bleeding Stated Complaint: VAGINAL PAIN/DISCHARGE Time Seen by MD: 20:05 History of Present Illness Initial Comments 25-year-old female no history here for evaluation of one day history of dysuria and discharge with the urethra. 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 No similar symptoms in the past. She is concerned she has a UTI though she had came in the emergency room for evaluation. No fever no cough no shortness a breath no vomiting or diarrhea. Allergies: Coded Allergies: No Known Drug Allergies (Unverified Allergy, Unknown, 02/21/21) Home Meds Active Scripts Clindamycin HCl (Clindamycin HCl) 300 Mg Capsule, 1 CAP PO TID for 10 Days, #30 CAP 0 Refills Prov:SINDHU NATION MD 11/27/24 Methylprednisolone (Medrol) 4 Mg Tab.ds.pk, 1 TAB PO AD for 6 Days, #21 TAB 0 Refills 6 on day 1 then reduce by one tablet daily until gone Prov:ROXIE RODRIGUEZ 05/29/24 Amoxicillin/Potassium Clav (Amox Tr-K Clv 875-125 mg Tab) 875 Mg-125 Mg Tablet, 1 EACH PO BID for 7 Days, #14 TAB 0 Refills Prov:ROXIE RODRIGUEZ 05/29/24 Ibuprofen (Ibuprofen) 600 Mg Tablet, 600 MG PO TID PRN for PAIN for 5 Days, #5 15 Prov:YONNY ISAAC NP 03/28/21 Cyclobenzaprine HCl (Flexeril) 10 Mg Tab, 5 MG PO TID for neck pain for 5 Days, #20 TAB Prov:YONNY ISAAC NP 03/28/21 Cetirizine HCl (Zyrtec) 10 Mg Capsule, 10 MG PO DAILY PRN for allergic reaction for 5 Days, #5 CAP 0 Refills Prov:CROW JUSTIN MD 02/21/21 Prednisone (Prednisone) 20 Mg Tablet, 20 MG PO BID for 3 Days, #6 TAB 0 Refills Prov:CROW JUSTIN MD 02/21/21 Past Medical History Past Medical History: No Pertinent History Past Surgical History: None Female( History) LMP: May 23, 2025 Genitourinary: (+) frequency, (+) hematuria Musculoskeletal: (+) Flank Pain Physical Exam Physical Exam Dictation GENERAL APPEARANCE NAD, activity normal for age, well developed/ well nourished, no cyanosis, pallor, or diaphoresis. EYES lids/conjunctiva normal. EARS/NOSE/THROAT Mucous membranes moist, nares normal, lips/teeth normal uvula midline without oral pharyngeal erythema, exudate or swelling TMs normal bilaterally. No lymphangitis/lymphedema. HEAD/NECK normocephalic atraumatic, no facial trauma, neck is supple. RESPIRATORY respiratory effort normal, speaks in full sentences, no tripod posit ion, no accessory muscle use. Lungs clear to auscultation without rhonchi, wheezes, rales CARDIAC Regular rate and rhythm, no edema. ABDOMINAL Soft, ND/NT. No evidence of fluid wave. No pulsatile masses on exam, rebound tenderness, Mcdermott sign or pain over Mcburney's point. MUSCLES/EXTREMITIES No abnormal range of motion, no swelling. SKIN Warm, pink and dry. No rashes, dermatoses, petechiae or lesions. NEUROLOGICAL Speech is clear and appropriate. Normal level of consciousness. Gait and coordination are normal. 5/5 strength in all extremities. PSYCH Normal mood and affect. Judgement/competence is appropriate Results Laboratory and Microbiology Lab and Micro Result Laboratory Tests Test 06/10/25 20:07 06/10/25 20:22 Urine Color DARK-YELLOW (YELLOW) Urine Appearance CLOUDY (CLEAR) H Urine pH 6.0 (5.0-8.0) Urine Specific [place] 1.022 (1.001-1.031) Urine Protein 70 mg/dL (NEGATIVE) H Urine Glucose (UA) NEGATIVE mg/dL (NEGATIVE) Urine Ketones NEGATIVE mg/dL (NEGATIVE) Urine Occult Blood LARGE (NEGATIVE) H Urine Nitrate 1+ (NEGATIVE) H Urine Bilirubin NEGATIVE mg/dL (NEGATIVE) Urine Urobilinogen 0.2 mg/dL (0.2-1.0) Urine Leukocyte Esterase 250 Rafael/uL (NEGATIVE) H White Blood Count 16.0 K/uL (4.8-10.8) H Red Blood Count 5.00 MIL/uL (4.00-5.50) Hemoglobin 14.3 g/dL (12.0-16.0) Hematocrit 42.9 % (36-48) Mean Corpuscular Volume 85.8 fL (79-99) Mean Corpuscular Hemoglobin 28.6 pg (27.0-33.0) Mean Corpuscular Hemoglobin Concent 33.3 g/dL (32.0-36.0) Red Cell Distribution Width 12.9 % (11.0-15.5) Platelet Count 392 K/uL (130-400) Mean Platelet Volume 10.0 fL (7.5-10.5) Immature Granulocyte % (Auto) 0.5 % (0-1) Neutrophils (%) (Auto) 71.4 % (40.0-77.0) Lymphocytes (%) (Auto) 22.2 % (21.0-51.0) Monocytes (%) (Auto) 5.2 % (3.0-13.0) Eosinophils (%) (Auto) 0.4 % (0.0-8.0) Basophils (%) (Auto) 0.3 % (0.0-5.0) Neutrophils # (Auto) 11.4 K/uL (1.8-7.7) H Lymphocytes # (Auto) 3.5 K/uL (1.0-4.8) Monocytes # (Auto) 0.8 K/uL (0.1-1.0) Eosinophils # (Auto) 0.07 K/uL (0.00-0.70) Basophils # (Auto) 0.05 K/uL (0.00-0.20) Absolute Immature Granulocyte (auto 0.08 K/uL (0-1) Nucleated Red Blood Cells 0.0 % (0.0-0.19) Sodium Level 140 mmol/L (136-145) Potassium Level 4.0 mmol/L (3.5-5.1) Chloride Level 103 mmol/L (101-111) Carbon Dioxide Level 28 mmol/L (21-32) Blood Urea Nitrogen 13 mg/dL (7-18) Creatinine 0.7 mg/dL (0.5-1.0) Glomerular Filtration Rate Calc 122 mL/min (>90) Random Glucose 85 mg/dL (70-105) Total Calcium 9.1 mg/dL (8.5-10.1) Serum Test, Qualitative NEGATIVE (NEGATIVE) MDM 25-year-old female here for evaluation of dysuria. We will get urine studies, blood work and reassess. Disposition pending results of labs. Likely discharge home ED Course Orders Procedure Category Date Status Time Urinalysis Profile LAB 06/10/25 In Process 20:09 Cbc With Differential LAB 06/10/25 Complete 20:09 Basic Metabolic Panel LAB 06/10/25 Complete 20:09 Testing, LAB 06/10/25 Complete Serum Hcg 20:09 Chlamydia & Gc Pcr BRANDON 06/10/25 Logged 20:19 Ketorolac PHA 06/10/25 Complete Tromethamine 15mg/Ml 20:30 Lactated Ringers PHA 06/10/25 In Process 1000ml (Lactated 20:30 Culture Urine BRANDON 06/10/25 Logged 20:55 Ceftriaxone 2gm Vial PHA 06/10/25 Verified (Rocephin 2gm Inj) 21:00 Current Medications Medications (Trade) Dose Ordered Sig/Elan Route PRN Reason Start Time Stop Time Status Last Admin Dose Admin Ketorolac Tromethamine (toRADol) 15 mg ONCE ONCE IM 06/10/25 20:30 06/10/25 20:31 DC 06/10/25 20:42 Lactated Ringer's (Lactated Ringers 1000ml) 1,000 ml AD IV 06/10/25 20:30 07/10/25 20:29 06/10/25 20:41 Vital Signs Date Time Temp Pulse Resp B/P (MAP) Pulse Ox O2 Delivery O2 Flow Rate FiO2 06/10/25 20:06 98.1 90 18 168/95 99 0 DX & DISP Disposition: Discharge Departure Impression: Primary Impression: UTI (urinary tract infection) Condition: Stable Scripts Cephalexin (Cephalexin) 500 Mg Tablet 1 TAB PO BID for 7 Days, #14 TAB 0 Refills Prov: ERICK PHILIP MD 06/10/25 Referrals: CARLEY MONIQUE (PCP) ERICK PHILIP MD Jun 10, 2025 20:38
[2025-06-10 20:40] LABS: IMMATURE GRANULOCYTE ABSOLUTE 0.08 K/uL (0-1); NUCLEATED RED BLOOD CELLS 0.0 % (0.0-0.19); PLATELET COUNT (AUTO) 392 K/uL (130-400); RED BLOOD CELL COUNT(AUTO) 5.00 MIL/uL (4.00-5.50); RED CELL DISTRIBUTION WIDTH 12.9 % (11.0-15.5); WHITE BLOOD COUNT (AUTO) 16.0 K/uL (4.8-10.8)
[2025-06-10] MEDS: LACTATED RINGERS 1000ML IV SCH (20:41)
[2025-06-10 20:47] LABS: APPEARANCE,URINE CLOUDY (CLEAR); GLUCOSE, URINE (UA) NEGATIVE (NEGATIVE); LEUKOCYTE ESTERASE ,URINE 250 Leu/uL (NEGATIVE); NITRATE,URINE 1+ (NEGATIVE); OCCULT BLOOD,URINE LARGE (NEGATIVE)
[2025-06-10 20:49] LABS: CREATININE 0.7 mg/dL (0.5-1.0); GLOMERULAR FILTR. RATE CALC 122.0 mL/min (>90); GLUCOSE,RANDOM 85.0 mg/dL (70-105); SODIUM SERUM 140.0 mmol/L (136-145); UREA NITROGEN, BLOOD 13.0 mg/dL (7-18)
[2025-06-10 20:55] LABS: ADD UA MICROSCOPIC YES
[2025-06-10] MEDS ORDERED: CEPH500T PO (20:59)
[2025-06-10 21:03] LABS: SQUAMOUS EPITHELIAL CELL,UR FEW /HPF (0-2)
[2025-06-10 21:39] VITALS: BP 147/85; PULSE 87; RESP 18; TEMP 98.6; O2SAT 99
== END 2025-06-10 21:40 | disposition home or self-care (01) ==
LOC: EDH 20:02
DX: N39.0 Urinary tract infection, site not specified (principal); Z79.52 Long term (current) use of systemic steroids
CPT/HCPCS: 99284; 80048; 84703; 85025; 87086 ×3; 87186 ×2; 87491; 87591; 81001; 36415; 96372 ×2; J1885; J7120; J0696